=== PATIENT | female | born 1955 | race Caucasian/White ===

== ENCOUNTER → 2016-12-24 | Outpatient (CLI) | payer OTHER | LOC: FIMAGING 07:39 | PROVIDERS: ATTEND Family Medicine | DX: Z12.31 Encounter for screening mammogram for malignant neoplasm of breast (principal); Z80.3 Family history of malignant neoplasm of breast | CPT/HCPCS: G0202 ==

== ENCOUNTER 2017-06-03 08:20 | Emergency (ER) | payer OTHER ==
[2017-06-03 08:34] VITALS: PULSE 75
[2017-06-03] MEDS ORDERED: predniSONE 20 MG TAB PO ONE (10:03)
[2017-06-03] MEDS ORDERED: DIAZEPAM 5 MG TAB PO ONE (10:08)
[2017-06-03] MEDS ORDERED: LIDOCAINE 5% 1 EA PATCH TD ONE (10:17)
[2017-06-03] MEDS: LIDOCAINE 5% 1 EA PATCH TD ONE ×2 (10:19→10:24)
--- NOTE | 2017-06-03 11:36 | EDPHY ---
H & P Stated Complaint: low back pain last week/yesterday developed r buttock/sciatic type pain int Time Seen by Provider: 06/03/17 08:56 HPI/ROS: CHIEF COMPLAINT: Leg pain HISTORY OF PRESENT ILLNESS: This is a 61-year-old female with 1 week of low back pain. She does not remember specific incident that might have caused this. Initially the pain was worse when she was sitting. She subsequently developed pain in the right anterior thigh when she was standing tear. 2 days ago her pain acutely worsened. She now reports pain anterior right leg, constant and burning, along with numbness of the anterior right thigh extending to just below her knee. She feels that her right leg is "unreliable "and might give way. She was started on a Medrol Dosepak yesterday. She presents today with worsening pain. She denies bowel or bladder changes. No recent fever. REVIEW OF SYSTEMS: A ten point review of systems was performed and is negative with the exception of the items mentioned in the HPI. Past medical history: Negative Past surgical history: Surgery for torn hamstring, section Social history: She is . She does not use tobacco products. General Appearance: Alert. Vital signs reviewed. Eyes: Pupils equal and round, no conjunctival injection, no discharge. Anicteric. ENT, Mouth: Mucous membranes are moist, no oropharyngeal erythema or edema. Neck: No lymphadenopathy, supple. Respiratory: Lungs are clear to auscultation; no wheezes, rales, or rhonchi. Cardiovascular: Regular rate and rhythm; no murmur, rub, or gallop. Gastrointestinal: Abdomen is soft and nontender, no masses or organomegaly, bowel sounds normal. Skin: Warm and dry, no rashes on exposed skin, normal color. Back: Nontender to palpation over the thoracolumbar spine. No CVAT. Extremities: No lower extremity edema, no calf tenderness or swelling. Neurological: Alert and oriented. Moving all four extremities easily and equally. Strength is 5 over 5 bilaterally with individual testing of all major motor groups of the lower extremities. However, when she attempts to stand on her right leg and squat she is unable to do so because the proximal weakness. Sensory exam reveals hyperesthesias in the right anterolateral thigh and diminished sensation to light touch over the distal right thigh extending on to the knee. Sharp touch is intact over her lower extremities. Deep tendon reflexes are 2+ left knee, absent in the right knee, and absent in both ankles. Gait is normal. She is able to heel walk and toe walk. Psychiatric: Normal affect. Source: Patient - Personal History Current Tetanus/Diphtheria Vaccine: Yes - Medical/Surgical History Hx Asthma: No Hx Chronic Respiratory Disease: No Hx Diabetes: No Hx Cardiac Disease: No Hx Renal Disease: No Hx Cirrhosis: No Hx Alcoholism: No Hx HIV/AIDS: No Hx Splenectomy or Spleen Trauma: No Other PMH: csect - Social History Smoking Status: Never smoked Constitutional: Initial Vital Signs Temperature (C) 36.5 C 06/03/17 08:31 Heart Rate 75 06/03/17 08:31 Respiratory Rate 17 06/03/17 08:31 Blood Pressure 160/92 H 06/03/17 08:31 O2 Sat (%) 99 06/03/17 08:31 O2 Delivery Mode Room Air Allergies/Adverse Reactions: No Known Allergies Allergy (Verified 06/03/17 08:30) Home Medications: Medication Instructions Recorded Diazepam [Valium 5 MG (*)] 5 mg PO TID PRN #10 tab 06/03/17 Estrace 06/03/17 Prednisone 06/03/17 Medical Decision Making ED Course/Re-evaluation: I spoke with Dr. Cross on the phone and she recommends an MRI scan. The patient has an appointment in Dr. Cross office this afternoon. Dr. Cross also recommends a dose of oral prednisone, 20 mg. The patient received this and also received Valium 5 mg p.o.. MRI scans reported to me as showing a herniated nucleus polyposis at L3-4 on the right. I reviewed the full radiology report. This is consistent with her physical examination. She will keep her appointments afternoon with Dr. Cross. I think that her symptoms fit with the MRI findings. I do not feel that she needs additional emergency department treatment; she will see Dr. Cross this afternoon and discussed additional treatments. Danger signs reviewed with her. She is noted to be hypertensive in the emergency department. She is aware of this will have this rechecked by her primary care physician, Dr. Delgado. Differential Diagnosis: Back pain including but not limited to muscular pain, herniated disc, spine fracture, intra-abdominal causes and urinary tract infection. - Data Points Medications Given: Discontinued Medications Diazepam (Valium) 5 mg PO EDNOW ONE Stop: 06/03/17 10:09 Last Admin: 06/03/17 10:19 Dose: 5 mg Lidocaine (Lidoderm 5%) 1 ea TD DAILY JADA Stop: 12/01/17 08:59 Last Admin: 06/03/17 10:25 Dose: Not Given Lidocaine (Lidoderm 5%) 1 ea TD EDNOW ONE Stop: 06/04/17 09:59 Last Admin: 06/03/17 10:24 Dose: 1 ea Prednisone (Prednisone) 20 mg PO EDNOW ONE Stop: 06/03/17 10:04 Last Admin: 06/03/17 10:19 Dose: 20 mg Departure - Departure Disposition: Home, Routine, Self-Care Clinical Impression: Lumbar radiculopathy, acute Condition: Good Instructions: Lumbar Radiculopathy (ED) Additional Instructions: Keep your appointment with Dr. Cross this afternoon. Referrals: Mariaa Delgado MD [Primary Care Provider] - As per Instructions Aubrie Cross [Medical Doctor] - As per Instructions Prescriptions: Diazepam [Valium 5 MG (*)] 5 mg PO TID PRN #10 tab PRN Reason: Spasms
[2017-06-03 11:54] VITALS: BP 144/65; RESP 16; TEMP 98.4; O2SAT 94
[2017-06-03] MEDS ORDERED: PATCH REMOVAL 1 EA PATCH TD SCH ×2 (21:00)
[2017-06-04] MEDS ORDERED: LIDOCAINE 5% 1 EA PATCH TD SCH (09:00)
== END 2017-06-03 11:52 | disposition home or self-care (01) ==
DX: M54.16 Radiculopathy, lumbar region (principal)

== ENCOUNTER 2017-06-11 16:20 | Emergency (ER) | payer OTHER ==
[2017-06-11 16:27] VITALS: BP 134/87; PULSE 53; RESP 17; TEMP 97.9; O2SAT 100
== END 2017-06-11 17:16 | disposition left against medical advice (07) ==
DX: Z53.21 Procedure and treatment not carried out due to patient leaving prior to being seen by health care provider (principal)

== ENCOUNTER → 2017-09-15 | Outpatient (CLI) | payer OTHER ==
[~2017-09-15] MED LIST: GADOBUTROL 10 ML VIAL IVP ONE
== END ==
LOC: FIMAGING 18:43
DX: M51.36 Other intervertebral disc degeneration, lumbar region (principal); M51.37 Other intervertebral disc degeneration, lumbosacral region; M46.96 Unspecified inflammatory spondylopathy, lumbar region
CPT/HCPCS: A9585

== ENCOUNTER → 2017-12-25 | Outpatient (CLI) | payer OTHER | LOC: FIMAGING 07:37 | PROVIDERS: ATTEND Family Medicine | DX: Z12.31 Encounter for screening mammogram for malignant neoplasm of breast (principal) ==

== ENCOUNTER → 2018-01-06 | Outpatient (CLI) | payer OTHER | LOC: FIMAGING 18:04 | PROVIDERS: ATTEND Family Medicine | DX: M79.671 Pain in right foot (principal); M19.071 Primary osteoarthritis, right ankle and foot; M77.31 Calcaneal spur, right foot ==

== ENCOUNTER → 2018-05-27 | Outpatient (CLI) | payer OTHER | LOC: FIMAGING 07:41 | PROVIDERS: ATTEND Family Medicine | DX: M54.2 Cervicalgia (principal); Z80.8 Family history of malignant neoplasm of other organs or systems; Z92.3 Personal history of irradiation ==

== ENCOUNTER 2018-06-29 08:27 | Emergency (ER) | payer OTHER ==
--- NOTE | 2018-06-29 09:08 | EDPHY ---
General Time Seen by Provider: 06/29/18 09:00 Narrative: CHIEF COMPLAINT: Skiing injury, ankle pain HISTORY OF PRESENT ILLNESS: Patient presents by private vehicle with her spouse with complaints of ankle pain. She was cross-country skiing yesterday when she caught her ski awkwardly. She describes an inversion injury and fall. She denies any head strike or complaints of pain other than her right ankle and lateral proximal fibula. She has moderate to severe pain rated at a 5/10. She is unable to bear weight due to this. She has no numbness or tingling. No weakness. No neck pain, back pain, chest pain or abdominal pain. She has difficulty describing the pain in the knee as she has chronic paresthesia and decrease sensation due to ongoing low back problems. She did not strike her head but does have a mild headache today. No neck pain or stiffness. No other associated complaints or modifying factors. DOMINANT EXTREMITY: Right-hand dominant ESTABLISHED ORTHOPEDIST: Dr. Lynn REVIEW OF SYSTEMS: Ten systems reviewed and are negative unless otherwise noted in the HPI PAST MEDICAL HISTORY: Lumbar degenerative disc and stenosis PAST SURGICAL HISTORY: Diskectomy, SOCIAL HISTORY: Nonsmoker. Lives independently with her spouse. Works as an quality technician FAMILY HISTORY: Noncontributory EXAMINATION: General Appearance: Alert, no distress HEENT: Normocephalic, atraumatic. Pupils equal round reactive. EOM symmetric Neck: Supple nontender. Cardiovascular: Symmetric DP PT pulses at 2+. There is good signs of perfusion of both lower extremities without cyanosis or pallor. Neurological: A&O, chronic decreased sensation at L4-L5. Symmetric patellar reflexes. Strength is excellent and symmetric in the lower extremities. Skin: Warm and dry, no rash. Mild ecchymosis to the right lateral malleolus. Extremities: Swelling and tenderness of the right lateral malleolus and mid shaft right fibula. There is no bony tenderness about the knee although it is difficult to fully determine this with her baseline paresthesia. Range of motion lower extremities symmetric but painful with dorsiflexion plantar flexion of the right ankle. There is no tilt or shift of the right ankle. All compartments are soft the right lower extremity Psychiatric: Mood and affect normal DIFFERENTIAL DIAGNOSES: Including but not limited to ankle sprain, ankle fracture, knee sprain, knee fracture, high ankle sprain MDM: 9:05 a.m. Acute right ankle and proximal fibular pain after a twisting mechanism injury yesterday. She does have moderate swelling ecchymosis over the lateral malleolus. There is no bony tenderness of the patella or the medial compartments of the knee. She is neuro intact distally. No evidence of compartment syndrome. Difficulty bearing weight, thus x-rays ordered. 9:30 a.m. X-ray as read by me without radiologist reveals distal fibular fracture with minimal displacement. 9:55 a.m. X-ray as read by radiologist confirms fracture with suspected possible nondisplaced medial malleolar fracture. I will consult Orthopedics. 10:10 a.m. Case discussed with orthopedist Dr. Nava. He recommends posterior splint. No further imaging at this time. Patient follow-up in his office this week. I re- evaluated the patient discussed this with her. She is comfortable this plan. 10:30 a.m. Posterior splint has been placed. Patient has been ambulating on crutches that difficulty. We discussed nonweightbearing status until seen by Orthopedics. We discussed ice and elevation. We discussed follow up with Orthopedics for definitive care. We discussed anti-inflammatories and or Tylenol. We discussed ED precautions. I have answered all her questions. She is discharged home stable condition. SUPERVISION: This patient was independently evaluated without direct involvement of or examination by the attending physician. - Diagnostics Imaging Results: Imaging Impressions Ankle X-Ray 06/29/18 09:03 Impression: 1. Oblique minimally displaced distal fibular fracture. 2. Possible nondisplaced avulsion fracture of the medial malleolus. Knee X-Ray 06/29/18 09:08 Impression: No acute osseous findings. Imaging: I viewed and interpreted images myself - History History Review: I reviewed the patient's medical records, I obtained additional history from the patient's family Smoking Status: Never smoked - Objective Vital Signs: Initial Vital Signs Temperature (C) 97.3 F 06/29/18 08:31 Heart Rate 72 06/29/18 08:31 Respiratory Rate 18 06/29/18 08:31 Blood Pressure 133/61 H 06/29/18 08:31 O2 Sat (%) 97 06/29/18 08:31 O2 Delivery Mode Room Air Allergies/Adverse Reactions: No Known Allergies Allergy (Verified 06/29/18 08:30) Home Medications: Medication Instructions Recorded Vitamin B Complex 06/29/18 Departure - Departure Disposition: Home, Routine, Self-Care Clinical Impression: Moderate right ankle sprain Qualifiers: Encounter type: initial encounter Qualified Code(s): S93.401A - Sprain of unspecified ligament of right ankle, initial encounter Injury due to skiing accident Qualifiers: Encounter type: initial encounter Qualified Code(s): V00.328A - Other snow-ski accident, initial encounter Fracture of fibula, right, closed Qualifiers: Encounter type: initial encounter Fibula location: shaft Fracture morphology: oblique Fracture alignment: displaced Qualified Code(s): S82.431A - Displaced oblique fracture of shaft of right fibula, initial encounter for closed fracture Condition: Good Instructions: Ankle Sprain (ED) Additional Instructions: 1. Nonweightbearing to the right lower extremity until seen by orthopedist 2. Keep your splint in place at all times and use her crutches provided 3. Ice and elevate as needed 4. ED precautions for numbness, tingling, numbling, weakness of the ankle or great toe Referrals: Mariaa Delgado MD [Primary Care Provider] - As per Instructions Latia Lynn MD [Medical Doctor] - As per Instructions
[2018-06-29 11:02] VITALS: BP 145/79
== END 2018-06-29 11:01 | disposition home or self-care (01) ==
PROC: 2W3QX1Z Immobilization of Right Lower Leg using Splint (ICD-10-PCS; principal; 2018-06-29)
DX: S82.431A Displaced oblique fracture of shaft of right fibula, initial encounter for closed fracture (principal); S93.401A Sprain of unspecified ligament of right ankle, initial encounter; M25.561 Pain in right knee; R20.2 Paresthesia of skin; G89.29 Other chronic pain; V00.321A Fall from snow-skis, initial encounter; Y93.23 Activity, snow (alpine) (downhill) skiing, snowboarding, sledding, tobogganing and snow tubing; Y92.838 Other recreation area as the place of occurrence of the external cause; Y99.9 Unspecified external cause status

== ENCOUNTER → 2019-01-11 | Outpatient (CLI) | payer OTHER | LOC: FIMAGING 10:40 ==